=== PATIENT | male | born 1960 | race Caucasian/White ===

== ENCOUNTER 2018-09-06 09:36 | Outpatient (REF) | payer OTHER, SELFPAY ==
--- NOTE | 2018-09-06 09:19 | SKI_PTH ---
PATIENT: Boris Bai LOC: [facility] U#:[id number] AGE/SX: 58/M ROOM: RE09/06/[address]: Ryder Artis DO : 1960 BED: DIS: 09/06/2018 SPEC #: [id number] RECD: 09/06/18 18:17 STATUS: DANYELLE REQ #: [id number] RHYS: 09/06/18 09:[address]: Ryder Artis DEPT: Surgical Specimen RECD BY: Rehana Alvarado ENTERED: 09/06/18 18:17 SP TYPE: DANNY SCALES DR: Milan Craig Tissues: 1 - SKIN BIOPSY(SHAVE/PUNCH) Procedures: SKIN LEVEL 4 Comments: [id number]
== END 2018-09-06 09:56 ==
LOC: LBN 09:36
PROVIDERS: PCP Physician Assistant; Visit Provider Otolaryngology Otolaryngology/Facial Plastic Surgery
DX: C44.219 Basal cell carcinoma of skin of left ear and external auricular canal (principal)
CPT/HCPCS: 88305

== ENCOUNTER 2018-09-17 12:37 | Outpatient (REF) | payer OTHER, SELFPAY ==
[2018-09-17 19:30] LABS: Absolute Basophil Count 0.01 k/cumm (0.0-0.2); Absolute Eosinophil Count 0.06 k/cumm (0.0-0.7); Absolute Lymphocyte Count 1.43 k/cumm (1.2-3.4); Absolute Monocyte Count 0.29 k/cumm (0.11-0.7); Absolute Neutrophil Count 2.43 k/cumm (1.2-6.7); Basophils % 0.2; Eosinophils % 1.4; HCT 39.7 % (40.0-50.0); HGB 13.5 g/dL (13.5-17.5); Lymphocytes % 33.9; Mean Corpuscular Volume 91.3 fL (80-95); Monocytes % 6.9; Neutrophils % 57.6; Platelet Count 223 x1000/uL (130-400); RBC 4.35 m/cumm (4.50-6.00); RBC Distribution Width 12.2 % (11.8-14.1); White Blood Cell Count 4.22 k/cumm (4.4-10.8)
[2018-09-17 19:55] LABS: ALT 36 U/L (12-78); AST 16 U/L (15-37); Albumin 4.1 g/dL (3.4-5.0); Alkaline Phosphatase 76 U/L (46-116); BUN 20 mg/dL (7-18); Bilirubin, Total 0.4 mg/dL (0.2-1.0); CREATININE 0.96 mg/dL (0.70-1.30); Calcium 9.5 mg/dL (8.5-10.1); Chloride 105 mmol/L (98-107); Glucose 89 mg/dL (70-100); Potassium 4.4 mmol/L (3.5-5.1); Sodium 143 mmol/L (136-145)
== END 2018-09-17 12:57 ==
LOC: NCHCN 12:37
PROVIDERS: PCP Physician Assistant; Visit Provider Internal Medicine
DX: D70.2 Other drug-induced agranulocytosis (principal); G35 Multiple sclerosis
CPT/HCPCS: 80053; 85025

== ENCOUNTER 2019-10-03 16:53 | Outpatient (REF) | payer OTHER, MEDICARE, SELFPAY ==
[2019-10-03 19:09] LABS: BUN 22 mg/dL (7-18); CREATININE 1.02 mg/dL (0.70-1.30); Chloride 104 mmol/L (98-107); Glucose 90 mg/dL (74-106); LDL CHOLESTEROL 159 mg/dL (<100); Potassium 4.4 mmol/L (3.5-5.1); Sodium 142 mmol/L (136-145); TSH 1.92 uIU/mL (0.36-3.74)
== END 2019-10-03 17:13 ==
LOC: NCHCN 16:53
PROVIDERS: PCP Physician Assistant; Visit Provider Internal Medicine
DX: Z00.00 Encounter for general adult medical examination without abnormal findings (principal); R03.0 Elevated blood-pressure reading, without diagnosis of hypertension
CPT/HCPCS: 80048; 83721; 84443

== ENCOUNTER 2021-08-08 11:12 | Outpatient (REF) | payer OTHER, MEDICARE, SELFPAY ==
[2021-08-08 18:56] LABS: Abs Immature Grans 0.01 10^3/uL (0.0-0.06); Absolute Basophil Count 0.02 10^3/uL (0.0-0.2); Absolute Eosinophil Count 0.08 10^3/uL (0.0-0.7); Absolute Lymphocyte Count 1.42 10^3/uL (1.2-3.4); Absolute Neutrophil Count 2.51 10^3/uL (1.2-6.7); Basophils % 0.5; Eosinophils % 1.8; HCT 39.4 % (40.0-50.0); HGB 12.8 g/dL (13.5-17.5); Immature Grans % 0.2; Lymphocytes % 32.7; MCH 30.3 pg (27.0-33.0); MCHC 32.5 % (32.0-36.0); MCV 93 fL (80-95); MPV 10.7 fL (8.0-11.0); Monocytes % 6.9; Neutrophils % 57.9; Platelet Count 224 10^3/uL (130-400); RBC 4.23 10^6/uL (4.36-5.78); RDW-SD 41.5 fL; WBC 4.34 10^3/uL (4.4-10.8)
[2021-08-08 19:42] LABS: ALT 25 U/L (16-63); AST 15 U/L (15-37); Albumin 4.1 g/dL (3.4-5.0); Alkaline Phosphatase 74 U/L (46-116); Anion Gap 6.6 mmol/L (3-11); BUN 32 mg/dL (7-18); Bilirubin, Total 0.6 mg/dL (0.2-1.0); CO2 31.4 mmol/L (21.0-32.0); Calcium 9.1 mg/dL (8.5-10.1); Calculated LDL 160 mg/dL (<100); Chloride 104 mmol/L (98-107); Cholesterol 238 mg/dL (<200); Glucose 89 mg/dL (74-106); HDL Cholesterol 67 mg/dL (40-60); Potassium 4.3 mmol/L (3.5-5.1); Sodium 142 mmol/L (136-145); Total Protein 6.9 g/dL (6.4-8.2); Triglyceride 56 mg/dL (<150)
== END 2021-08-08 11:13 | disposition home or self-care (01) ==
LOC: NCHCN 11:12
PROVIDERS: PCP Physician Assistant; Visit Provider Internal Medicine
DX: Z00.00 Encounter for general adult medical examination without abnormal findings (principal); G35 Multiple sclerosis; Z13.220 Encounter for screening for lipoid disorders
CPT/HCPCS: 80053; 80061; 85025

== ENCOUNTER 2022-08-11 18:01 | Outpatient (REF) | payer OTHER, MEDICARE, SELFPAY ==
[2022-08-11 20:14] LABS: ALT 25 U/L (16-63); AST 17 U/L (15-37); Alkaline Phosphatase 76 U/L (46-116); Anion Gap 2.5 mmol/L (3-11); BUN 46 mg/dL (7-18); Bilirubin, Total 0.4 mg/dL (0.2-1.0); CO2 28.5 mmol/L (21.0-32.0); CREATININE 1.1 mg/dL (0.70-1.30); Calcium 9.4 mg/dL (8.5-10.1); Calculated LDL 170 mg/dL (<100); Chloride 111 mmol/L (98-107); Cholesterol 247 mg/dL (<200); Estimated GFR 76.37 (mL/min/1.73m2); Glucose 95 mg/dL (74-106); HDL Cholesterol 67 mg/dL (40-60); Potassium 4.2 mmol/L (3.5-5.1); Sodium 142 mmol/L (136-145); Total Protein 7.3 g/dL (6.4-8.2); Triglyceride 50 mg/dL (<150)
== END 2022-08-11 18:02 | disposition home or self-care (01) ==
LOC: NCHCN 18:01
PROVIDERS: PCP Internal Medicine; Visit Provider Internal Medicine
DX: G35 Multiple sclerosis (principal); R03.0 Elevated blood-pressure reading, without diagnosis of hypertension; Z79.899 Other long term (current) drug therapy
CPT/HCPCS: 80053; 80061

== ENCOUNTER → 2022-09-10 09:52 | Outpatient (BNVA) | payer OTHER, MEDICARE, SELFPAY | PROVIDERS: PCP Internal Medicine; Visit Provider Psychiatry & Neurology Neurology | CPT/HCPCS: 99213 ==

== ENCOUNTER 2023-08-14 12:10 | Outpatient (REF) | payer OTHER, MEDICARE, SELFPAY ==
[2023-08-14 19:24] LABS: HCT 38.5 % (40.0-50.0); HGB 13.3 g/dL (13.5-17.5); MCH 30.9 pg (27.0-33.0); MCHC 34.5 % (32.0-36.0); MCV 90 fL (80-95); MPV 10.9 fL (8.0-11.0); Platelet Count 222 10^3/uL (130-400); RDW 12.2 % (11.8-14.1); RDW-SD 40.1 fL; WBC 4.59 10^3/uL (4.4-10.8)
[2023-08-14 20:08] LABS: ALT 27 U/L (16-63); AST 17 U/L (15-37); Alkaline Phosphatase 90 U/L (46-116); BUN 28 mg/dL (7-18); Bilirubin, Total 0.5 mg/dL (0.2-1.0); CREATININE 1.1 mg/dL (0.70-1.30); Calcium 9.7 mg/dL (8.5-10.1); Calculated LDL 82 mg/dL (<100); Chloride 107 mmol/L (98-107); Cholesterol 162 mg/dL (<200); Glucose 94 mg/dL (74-106); HDL Cholesterol 72 mg/dL (40-60); Potassium 4.2 mmol/L (3.5-5.1); Sodium 141 mmol/L (136-145); TSH 2.44 uIU/Ml (0.36-3.74); Total Protein 6.9 g/dL (6.4-8.2); Triglyceride 42 mg/dL (<150)
[2023-08-14 20:21] LABS: Creatine Kinase 101 U/L (39-308)
== END 2023-08-14 12:11 | disposition home or self-care (01) ==
LOC: NCHCN 12:10
PROVIDERS: PCP Internal Medicine; Visit Provider Internal Medicine
DX: Z00.00 Encounter for general adult medical examination without abnormal findings (principal)
CPT/HCPCS: 80053; 80061; 82550; 85027; 84443

== ENCOUNTER 2024-08-19 22:16 | Outpatient (REF) | payer OTHER, MEDICARE, SELFPAY ==
[2024-08-19 19:49] LABS: ALT 26 U/L (16-63); Anion Gap 3.7 mmol/L (3-11); BUN 28 mg/dL (7-18); CO2 33.3 mmol/L (21.0-32.0); CREATININE 1.2 mg/dL (0.70-1.30); Calcium 10.3 mg/dL (8.5-10.1); Chloride 104 mmol/L (98-107); Creatine Kinase 99 U/L (39-308); Estimated GFR 67.95 (mL/min/1.73m2); Glucose 101 mg/dL (74-106); Sodium 141 mmol/L (136-145)
[2024-08-19 20:06] LABS: Calculated LDL 97 mg/dL (<100); Cholesterol 178 mg/dL (<200); HDL Cholesterol 73 mg/dL (>or=40); Triglyceride 43 mg/dL (<150)
== END 2024-08-19 22:17 | disposition home or self-care (01) ==
LOC: NCHCN 22:16
PROVIDERS: PCP Internal Medicine; Visit Provider Internal Medicine
DX: I10 Essential (primary) hypertension (principal)
CPT/HCPCS: 80048; 80061; 82550; 84460